=== PATIENT | female | born 1960 | race Two or more races ===

== ENCOUNTER 2021-05-07 17:04 | Inpatient (IN) | payer MEDICAID, OTHER ==
[~2021-05-07] VITALS: Ht 152.4 cm; Wt 78.0 kg
[2021-05-07] MEDS ORDERED: MORPHINE SULFATE 4 MG/ML CPJ (NOT FOR IM USE) IV STA (21:32)
[2021-05-07] MEDS ORDERED: ONDANSETRON HCL 4MG/2ML INJ IV STA (21:32)
[2021-05-07] MEDS ORDERED: SODIUM CHLORIDE 0.9% 1,000 ML IV ONE (21:45)
[2021-05-07 23:42] LABS: HEMATOCRIT. 41.4 % (36.0-48.0); HEMOGLOBIN. 13.9 g/dL (12.0-16.0); MEAN CORPUSCULAR HEMOGLOBIN 30.3 pg (28.0-32.0); MEAN CORPUSCULAR VOLUME 90.3 fL (81.0-99.0); PLATELET 356 x1000/uL (130-400); RED BLOOD CELL COUNT 4.59 mill/uL (4.2-5.4); RED CELL DISTRIBUTION WIDTH 12.9 % (11.6-14.6)
[2021-05-07 23:45] LABS: CHLORIDE 101 mEq/L (98-107)
[2021-05-08] MEDS ORDERED: CEFTRIAXONE 1 G PREMIX 50 ML IV ONE (00:15)
[2021-05-08] MEDS ORDERED: METRONIDAZOLE 500 MG PREMIX 100 ML IV ONE (00:15)
[2021-05-08] MEDS ORDERED: SODIUM CHLORIDE 0.9% 1000ML BAG (SEPSIS BOLUS) IV ONE (00:30)
[2021-05-08 00:35] LABS: CLARITY URINE TURBID (CLEAR); COLOR URINE DARK YELLOW (YELLOW); KETONES URINE TRACE (NEGATIVE); LEUKOCYTE ESTERASE URINE 1+ (NEGATIVE); NITRITE URINE NEGATIVE (NEGATIVE); OCCULT BLOOD URINE 2+ (NEGATIVE); PROTEIN URINE 2+ (NEGATIVE); SPECIFIC GRAVITY URINE 1.017 (1.005-1.030)
[2021-05-08] MEDS ORDERED: METRONIDAZOLE 500MG TABLET PO NR (01:15)
[2021-05-08 03:33] LABS: PLATELET ESTIMATE NORMAL
[2021-05-08 04:00] VITALS: BP 117/70
[2021-05-08 04:40] VITALS: BP 117/70
[2021-05-08] MEDS ORDERED: ONDANSETRON HCL 4MG/2ML INJ IV PRN (06:30)
[2021-05-08] MEDS ORDERED: NALOXONE HCL 0.4MG/ML VIAL IV PRN (06:45)
[2021-05-08] MEDS: MORPHINE SULFATE 2 MG/ML CPJ (NOT FOR IM USE) IV PRN ×2 (06:50→12:11)
[2021-05-08 08:00] VITALS: BP 124/74
[2021-05-08] MEDS ORDERED: DEXT 5%/0.45% NACL KCL 20MEQ/L 1,000 ML IV SCH (08:00)
[2021-05-08] MEDS: PANTOPRAZOLE SODIUM 40 MG/VIAL IV SCH (08:37)
[2021-05-08 09:46] LABS: HEMATOCRIT. 36.3 % (36.0-48.0); HEMOGLOBIN. 11.7 g/dL (12.0-16.0); MEAN CORPUSCULAR HEMOGLOBIN 29.6 pg (28.0-32.0); MEAN CORPUSCULAR VOLUME 91.8 fL (81.0-99.0); MEAN PLATELET VOLUME 9.4 fl (7.4-10.4); PLATELET 268 x1000/uL (130-400); RED BLOOD CELL COUNT 3.96 mill/uL (4.2-5.4); RED CELL DISTRIBUTION WIDTH 12.9 % (11.6-14.6)
[2021-05-08 09:53] LABS: CHLORIDE 109 mEq/L (98-107)
[2021-05-08 10:08] LABS: AMYLASE 1034 IU/L (25-115)
[2021-05-08] MEDS: PIPERACILLIN/TAZOBACTAM 3.375 G in DEXTROSE 5% WATER 50 ML IV SCH ×3 (10:10→21:08)
[2021-05-08] MEDS: DEXT 5%/0.45% NACL 1000ML 1,000 ML IV SCH ×2 (10:13→17:57)
[2021-05-08 12:00] VITALS: BP 111/42
[2021-05-08 15:18] LABS: PLATELET ESTIMATE NORMAL
[2021-05-08 16:30] VITALS: BP 94/37
[2021-05-08 20:00] VITALS: BP 111/49
[2021-05-09] VITALS: BP 129/66
[2021-05-09] MEDS: MORPHINE SULFATE 2 MG/ML CPJ (NOT FOR IM USE) IV PRN ×4 (00:35→21:28)
[2021-05-09] MEDS: DEXT 5%/0.45% NACL 1000ML 1,000 ML IV SCH ×3 (03:33→18:43)
[2021-05-09 04:00] VITALS: BP 146/58
[2021-05-09] MEDS: PIPERACILLIN/TAZOBACTAM 3.375 G in DEXTROSE 5% WATER 50 ML IV SCH ×3 (06:45→22:27)
[2021-05-09 07:06] LABS: BASOPHILS % 0.2 % (0.0-2.0); EOSINOPHILS % 0.6 % (0.0-5.0); HEMATOCRIT. 33.5 % (36.0-48.0); HEMOGLOBIN. 11.1 g/dL (12.0-16.0); LYMPHOCYTES % 8.9 % (20.0-50.0); MEAN CORPUSCULAR HEMOGLOBIN 30.3 pg (28.0-32.0); MEAN CORPUSCULAR VOLUME 91.8 fL (81.0-99.0); MEAN PLATELET VOLUME 9.2 fl (7.4-10.4); MONOCYTES % 3.9 % (2.0-8.0); NEUTROPHILS % 86.4 % (40.0-76.0); PLATELET 229 x1000/uL (130-400); RED BLOOD CELL COUNT 3.65 mill/uL (4.2-5.4); RED CELL DISTRIBUTION WIDTH 12.9 % (11.6-14.6)
[2021-05-09 07:16] LABS: CHLORIDE 105 mEq/L (98-107)
[2021-05-09 07:22] LABS: AMYLASE 637 IU/L (25-115)
[2021-05-09 08:00] VITALS: BP 134/60
[2021-05-09] MEDS: PANTOPRAZOLE SODIUM 40 MG/VIAL IV SCH (08:28)
[2021-05-09] MEDS ORDERED: ACETAMINOPHEN 325MG TABLET PO PRN (11:45)
[2021-05-09 12:00] VITALS: BP 133/53
[2021-05-09 16:00] VITALS: BP 112/72
[2021-05-09] MEDS ORDERED: POTASSIUM CHLORIDE INJ 40 MEQ in DEXT 5% WATER 250 ML IV ONE (19:00)
[2021-05-09 20:00] VITALS: BP 153/70
[2021-05-09] MEDS: KCL 20MEQ/100ML PREMIX 100 ML IV SCH (22:11)
[2021-05-10] VITALS: BP 123/57
[2021-05-10] MEDS: KCL 20MEQ/100ML PREMIX 100 ML IV SCH (01:50)
[2021-05-10] MEDS: DEXT 5%/0.45% NACL 1000ML 1,000 ML IV SCH ×3 (02:10→17:00)
[2021-05-10 04:00] VITALS: BP 121/50
[2021-05-10] MEDS: PIPERACILLIN/TAZOBACTAM 3.375 G in DEXTROSE 5% WATER 50 ML IV SCH ×3 (05:57→22:19)
[2021-05-10 06:22] LABS: CHLORIDE 105 mEq/L (98-107)
[2021-05-10 06:42] LABS: AMYLASE 285 IU/L (25-115)
[2021-05-10 07:09] LABS: BASOPHILS % 0.2 % (0.0-2.0); EOSINOPHILS % 0.6 % (0.0-5.0); HEMATOCRIT. 35.8 % (36.0-48.0); LYMPHOCYTES % 8.5 % (20.0-50.0); MEAN CORPUSCULAR HEMOGLOBIN 30.9 pg (28.0-32.0); MEAN CORPUSCULAR VOLUME 92.3 fL (81.0-99.0); MEAN PLATELET VOLUME 9.7 fl (7.4-10.4); MONOCYTES % 3.9 % (2.0-8.0); NEUTROPHILS % 86.8 % (40.0-76.0); PLATELET 257 x1000/uL (130-400); RED BLOOD CELL COUNT 3.88 mill/uL (4.2-5.4); RED CELL DISTRIBUTION WIDTH 12.7 % (11.6-14.6)
[2021-05-10 08:00] VITALS: BP 128/70
[2021-05-10] MEDS: PANTOPRAZOLE SODIUM 40 MG/VIAL IV SCH (09:20)
[2021-05-10 12:00] VITALS: BP 130/64
[2021-05-10] MEDS ORDERED: SKIN ADHESIVE 0.7 GM EA TOP ONE (14:46)
[2021-05-10] MEDS ORDERED: LIDOCAINE HCL 1% 20ML VIAL (Pyxis) INJ ONE (14:46)
[2021-05-10] MEDS ORDERED: POLYMYXIN B SULFATE 500000 UNITS/VIAL ONE (14:47)
[2021-05-10] MEDS ORDERED: BUPIVACAINE HCL/PF 0.5% (5MG/ML) 10ML ONE (14:47)
[2021-05-10] MEDS ORDERED: FENTANYL CITRATE/PF 50MCG/ML 2ML VIAL ONE (16:40)
[2021-05-10] MEDS ORDERED: ROCURONIUM BROMIDE 10MG/ML VIAL 5ML IV ONE (16:40)
[2021-05-10] MEDS ORDERED: MIDAZOLAM HCL 2 MG/2 ML VIAL ONE (16:41)
[2021-05-10] MEDS ORDERED: PROPOFOL 200MG/20ML VIAL IV ONE (16:41)
[2021-05-10] MEDS ORDERED: NEOSTIGMINE METHYLSULFATE 1MG/ML 10 ML VIAL ONE (16:41)
[2021-05-10] MEDS ORDERED: GLYCOPYRROLATE 0.2 MG/ML 2ML VIAL ONE (16:41)
[2021-05-10] MEDS ORDERED: ONDANSETRON HCL 4MG/2ML INJ ONE (16:55)
[2021-05-10] MEDS ORDERED: DEXAMETHASONE 4MG/ML 1ML VIAL ONE (16:55)
[2021-05-10] MEDS ORDERED: HYDROMORPHONE HCL/PF 2MG/ML CPJ IV PRN (17:00)
[2021-05-10] MEDS ORDERED: LABETALOL 5MG/ML SYR 20 MG/4 ML SYRINGE IV PRN (17:00)
[2021-05-10] MEDS ORDERED: ONDANSETRON HCL 4MG/2ML INJ IV PRN (17:00)
[2021-05-10] MEDS ORDERED: MEPERIDINE HCL/PF 25MG/ML CPJ IV PRN (17:00)
[2021-05-10 21:45] VITALS: BP 136/71
[2021-05-11] MEDS: DEXT 5%/0.45% NACL 1000ML 1,000 ML IV SCH ×2 (00:09→08:33)
[2021-05-11] MEDS: MORPHINE SULFATE 2 MG/ML CPJ (NOT FOR IM USE) IV PRN ×3 (00:29→10:38)
[2021-05-11 04:00] VITALS: BP 149/64
[2021-05-11] MEDS: PIPERACILLIN/TAZOBACTAM 3.375 G in DEXTROSE 5% WATER 50 ML IV SCH ×2 (05:54→13:10)
[2021-05-11 07:58] VITALS: BP 138/74
[2021-05-11 08:31] LABS: BASOPHILS % 0.4 % (0.0-2.0); EOSINOPHILS % 2.5 % (0.0-5.0); HEMATOCRIT. 34.2 % (36.0-48.0); HEMOGLOBIN. 11.2 g/dL (12.0-16.0); LYMPHOCYTES % 16.7 % (20.0-50.0); MEAN CORPUSCULAR VOLUME 91.6 fL (81.0-99.0); MEAN PLATELET VOLUME 9.2 fl (7.4-10.4); MONOCYTES % 5.5 % (2.0-8.0); NEUTROPHILS % 74.9 % (40.0-76.0); PLATELET 279 x1000/uL (130-400); RED BLOOD CELL COUNT 3.74 mill/uL (4.2-5.4); RED CELL DISTRIBUTION WIDTH 12.5 % (11.6-14.6)
[2021-05-11 08:56] LABS: CHLORIDE 106 mEq/L (98-107)
[2021-05-11] MEDS ORDERED: FAMOTIDINE 20MG/2ML VIAL IV SCH (09:00)
[2021-05-11 09:16] LABS: AMYLASE 153 IU/L (25-115)
[2021-05-11 11:48] VITALS: BP 151/67
[2021-05-11 14:49] VITALS: BP 136/59
== END 2021-05-11 15:20 | disposition home or self-care (01) | DRG 263 ==
LOC: ER 17:04 → 7EST 05-08 02:21 → EDBEDREQTM 05-08 02:23 → EDBEDREQ 05-08 02:23 → ENRESERV 05-08 03:48
PROVIDERS: ADMIT Internal Medicine; ATTEND Internal Medicine
PROC: 0FT44ZZ Resection of Gallbladder, Percutaneous Endoscopic Approach (ICD-10-PCS; principal; 2021-05-10)
DX: K85.10 Biliary acute pancreatitis without necrosis or infection (principal); E87.2 Acidosis; E87.1 Hypo-osmolality and hyponatremia; K80.20 Calculus of gallbladder without cholecystitis without obstruction; E66.9 Obesity, unspecified; E87.6 Hypokalemia; R74.01 Elevation of levels of liver transaminase levels; Z20.822 Contact with and (suspected) exposure to COVID-19; R79.89 Other specified abnormal findings of blood chemistry; R74.8 Abnormal levels of other serum enzymes; K82.8 Other specified diseases of gallbladder; Z90.710 Acquired absence of both cervix and uterus; Z68.33 Body mass index [BMI] 33.0-33.9, adult
CPT/HCPCS: 36415; 71045; 74176; 74181; 76700; 80048; 80053; 80076; 81003; 82150; 82248; 83605; 84145; 84484; 85025; 87426; 88304; 93005; 99291; C9113; J0696; J1100; J1170; J2250; J2270; J2405; J2543; J2704; J2710; J3010; J3480; J3490; J7030; J7060